=== PATIENT | female | born 1955 | race Caucasian/White ===

== ENCOUNTER 2016-08-30 11:26 | Day surgery (SDC) | payer MEDICARE ==
[~2016-08-30] VITALS: Ht 161.3 cm; Wt 66.0 kg
[~2016-08-30 11:26] MED LIST: ASCO500C6 PO; ASPI-973 PO; BETA15CR38 TP; CALC600T12 PO; CARI350T PO; CHLO500T24 PO; DIAZ10TA3 PO; GABA-502 PO; LEVO88TA4 PO; Lactated Ringer's 1,000 ML IV ONE; MULT-1018 PO; NIAC500T21 PO; PYR50 PO; TRAM50TA2 PO; VENL75TA3 PO; VITA200C61 PO; [UNRECOGNIZED DRUG - CODE] PO
[2016-08-30] MEDS ORDERED: Propofol 10,000 mCg/mL 20 mL Inj ONE (11:27)
[2016-08-30] MEDS ORDERED: Lidocaine PF 1% 30 mL Inj ONE (11:27)
[2016-08-30 12:19] VITALS: BP 134/97; PULSE 78; RESP 16; O2SAT 99
[2016-08-30] MEDS ORDERED: Atropine 0.4 mg/mL Inj IVPUSH PRN (13:10)
[2016-08-30] MEDS ORDERED: Ondansetron 2 mg/mL 2 mL Inj IVPUSH PRN (13:10)
[2016-08-30] MEDS ORDERED: Lactated Ringer's 1,000 ML IV SCH (13:10)
[2016-08-30] MEDS ORDERED: MetoCLOpramide 5 mg/mL 2 mL Inj IVPUSH PRN (13:10)
--- NOTE | 2016-08-30 13:10 | PCM.HPANE ---
Patient Data Date of Service: Aug 30, 2016 Surgeon Admitting Provider: Attending Provider:Rafat Bergeron MD Primary Care Physician:Tony Ndiaye MD Other Provider:Melanie Busch Anesthesia Reason for Visit Tubular Adenoma Of Colon Ht/WT & BMI Height (Feet): 5 Height (Inches): 3.5 Weight (Kilograms): 66 Body Mass Index 25.00 Allergies Coded Allergies: bupropion (Verified Allergy, Unknown, 08/30/16) Past Anesthesia History Anesthesia History: Denies:: Abnormal Airway, Anesthesia Reactions, Difficult Intubation, Fam Anesthesia Reaction, Fam Malignant Hypertherm, Malignant Hyperthermia Diabetes History Hx Diabetes?: No MRSA MRSA: No Medications Blood Thinner: Aspirin Last Dose Blood Thinner: Aug 20, 2016 Hypertension Medication: No Home Meds Incl Beta Ike: No Reported Medications Vitamin E (Dl,Tocopheryl Acet) (Vitamin E)200 Unit [id number] Unit PO DAILY 08/29/16 Ascorbic Acid (Vitamin C)500 Mg Capsule.er1,000 Mg PO DAILY 08/29/16 Pyridoxine (Vitamin B-6)50 Mg [id number] Mg PO DAILY 08/29/16 Venlafaxine 75 Mg Bbjxfo338 Mg PO BIDWM Ref 0 08/29/16 Tramadol 50 Mg Uuvfuu98 Mg PO BID PRN For Pain Ref 0 08/29/16 Niacinamide (Niacin)500 Mg Wocztk882 Mg PO DAILY 08/29/16 Carisoprodol (Soma)350 Mg [id number] Mg PO TID 08/29/16 Multivitamin (Multi Vitamin Daily)1 Each Tablet1 Each PO DAILY 30 Days Ref 0 08/29/16 Levothyroxine 88 Mcg Hwxcfo23 Mcg PO DAILY Ref 0 08/29/16 Gabapentin 300 Mg Xenwhkq491 Mg PO TID Ref 0 08/29/16 Estradiol/Norethindrone 0.5-0.1 mg 1 Each Tablet1 Tablet PO DAILY #1 PACK 08/29/16 Diazepam 10 Mg Hsqqvi68 Mg PO TID PRN For Anxiety Ref 0 08/29/16 Chlorzoxazone 500 Mg Kltnvv557 Mg PO BID 08/29/16 Calcium Carbonate (Calcium)600 Mg Tablet1,250 Mg PO DAILY 08/29/16 Betamethasone/Propylene Glyc (Betamethasone Dp Aug 0.05% Crm)15 Gm Cream..g.15 Gm TP BID 08/29/16 Aspirin 81 Mg Bfelqj77 Mg PO DAILY Ref 0 08/29/16 History History of ENT Problems?: No HEENT History: Denies:: Abnormal Airway Difficult Intubation Hx of Heart Problems?: No Cardiovascular History: Denies:: Pacemaker Hx of Respiratory Problem?: Yes Respiratory History: Positive for:: Pneumonia (21 years ago) Hx Neurologic Problems?: No Neurological History: Denies:: CVA Hx of GI Problems?: Yes Other GI Pertinent History: Hepatitis C Hx of Problems?: No HX of Peritoneal Dialysis: No Female Hx: Denies:: Currently Hx Musculoskeletal Problems?: Yes Musculoskeletal History: Positive for:: Fibromyalgia Hx of Psycho/Social Problems?: Yes Psycho Social History: Positive for:: Anxiety Hx Depression Hx Surgeries?: Yes (Left oophorectomy, left knee, oral surgery) Hx Any Other Health Problems?: Yes History Blood Transfusions: Denies:: Blood Transfuse Reaction Blood Transfusions Hx Diabetes: No Hx Alcohol Use: NoHx Substance Use: Yes Smoking Status: Current Every Day Smoker Stop/Bang Treated for Sleep Apnea?: No Do You Have a CPAP Machine?: No S-Snoring: Do You Snore Loudly: Yes T-Tired: feel tired, fatigued: No O-Obsered: Observed not breath: No P-Blood Pressure: treated: No B- Body Mass Index > 35 kg/m2: No A- Age over 50: Yes N- Neck Large Circumference: No G- Gender Male: No JORDAN Total Score: 2 JORDAN Risk Assessment: Low Risk, <3 Yes Risk Assessment Category Category 1A: Patient has history of documented sleep apnea, and HAS NOT received any narcotic, sedative or anesthesia administration during this stay. Category 1B: Patient has history of documented sleep apnea, and HAS received any narcotic , sedative or anesthesia administration during this stay Category 2: Patient has SUSPECTED Obstructive Sleep Apnea, and HAS received any narcotic , sedative or anesthesia administration during this stay. Category 3: Patient has SUSPECTED Obstructive Sleep Apnea and HAS NOT received narcotic, sedative or anesthesia administration during this stay. Category 4: Outpatient in Procedural Areas with known sleep apnea or who screen positive for High Risk via the STOP/BANG questionnaire. Exam Exam Vital Signs Vital Signs Date Time Temp Pulse Resp B/P Pulse Ox O2 Delivery O2 Flow Rate FiO2 08/30/16 12:19 78 16 134/97 99 Room Air General Appearance: Alert, Oriented X3, Cooperative HEENT/AIRWAY: MP 1, Neck Movement (Full), Mouth Opening (Wide) Lungs: Clear to Auscultation, Normal Air Movement Heart: Regular Rate/Rhythm, Normal S1, Normal S2 Plan Impression Patient chart reviewed, patient interviewed and anesthestic plan with risks, benefits, and alternatives discussed, and informed consent obtained. NPO Status: > 2 hours clears ASA Physical Status: ASA2 Mod Systemic Disease Anesthetic Plan: MAC Bene/Risks/Altern/Consents: Yes HP Complete Prior to Induction: Yes Cipriano Lindquist MD Aug 30, 2016 12:49
[2016-08-30 13:38] VITALS: BP 132/80; PULSE 76; RESP 16; O2SAT 96
--- NOTE | 2016-08-30 13:44 | PCM.ANEP1 ---
Post Anesthesia Phase 1 PACU Phase 1 Assessment Date of Service: Aug 30, 2016 Vital Signs Vital Signs Date Time Temp Pulse Resp B/P Pulse Ox O2 Delivery O2 Flow Rate FiO2 08/30/16 13:38 36.4 76 16 132/80 96 Room Air 08/30/16 12:19 78 16 134/97 99 Room Air Anesthetic Administered: MAC Level of Alertness: Awake, talking MARTINEZ's with Equal Strength: Yes Pain: No Nausea or Vomiting: No Lungs: Normal Air Movement Cipriano Lindquist MD Aug 30, 2016 13:44
[2016-08-30 13:48] VITALS: BP 139/83; PULSE 74; RESP 14; O2SAT 97
--- NOTE | 2016-08-30 13:50 | PCM.ANEP2 ---
Post Anesthesia Evaluation ASA/CMS Post Anesthesia Date of Service: Aug 30, 2016 VS in Patient's Normal Range?: Yes Resp Stable; Airway Patent?: Yes CV Function & Hydration Stable: Yes Mental Status Recovered?: Yes Pain control Satisfactory?: Yes N/V Control Satisfactory?: Yes Cipriano Lindquist MD Aug 30, 2016 13:50
[2016-08-30 13:58] VITALS: BP 144/91; PULSE 77; RESP 16; O2SAT 99
--- NOTE | 2016-08-30 14:41 | ENDO ---
[address] [address] ENDOSCOPY PROCEDURE PATIENT: LUIS FELIPE LEIVA : 1955 MR#: [id number] ADMIT: 08/30/2016 JOB ID: [id number] DATE: 08/30/2016 PROCEDURE: Colonoscopy with biopsy. PREOPERATIVE DIAGNOSIS(ES): History of tubular adenoma polyps. POSTOPERATIVE DIAGNOSIS(ES): 1. A 3 mm sigmoid polyp, removed by cold biopsy forceps. 2. There were two rectal polyps measuring 2 mm removed by cold biopsy forceps. ANESTHESIA: Monitored anesthesia care. COMPLICATIONS: None. BLOOD LOSS: Minimal. DESCRIPTION OF PROCEDURE: After risks and benefits were explained to the patient, informed consent was obtained. After anesthesia administered, colonoscope was then inserted from the rectum to the cecum. Mucosa carefully examined. Prep of the patient was excellent. After the procedure was done, the scope was withdrawn and the procedure terminated. FINDINGS: Upon inspection of the anus, no masses, hemorrhoids, ulcers, fissures were seen. Throughout the entire examination, there was a 3 mm sigmoid polyp and two polyps in the rectum measuring 2 mm. Each removed by cold biopsy forceps. Retroflexion was normal. IMPRESSION: Three polyps total, two in the rectum, one in the sigmoid measuring 3 mm in the sigmoid and 2 mm in the rectum removed by cold biopsy forceps. RECOMMENDATION: Await pathology results. If three or more tubular adenoma polyps, next colonoscopy in three years. If less than three tubular adenoma polyps, next colonoscopy in five years.
--- NOTE | 2016-09-02 14:30 | PATH ---
SURGICAL PATHOLOGY Attending Physician:Rafat Bergeron MD CASE STATUS: Signed Out PATIENT NAME: LUIS FELIPE LEIVA PID: [id number] : 1955 DATE COLLECTED:08/30/2016 20:36 SPECIMEN: 1: Rectum, Biopsy 2: Colon, Biopsy CLINICAL HISTORY: 1). RECTAL POLYP X2 2). SIGMOID COLON POLYP FINAL DIAGNOSIS: 1.RECTAL POLYPS: HYPERPLASTIC POLYPS, TWO. 2.SIGMOID COLON POLYP: HYPERPLASTIC POLYP. ICD10 CODE K62.1 K63.5 GROSS DESCRIPTION: The specimen is received in two formalin filled containers labeled with the patient's name. 1). The specimen is sublabeled "rectal polyp x2" and consists of 2 portions of tissue which aggregate to 0.2 x 0.2 x 0.2 CM. Specimen is entirely submitted in cassette 1A. 2). The specimen is sublabeled "sigmoid colon polyp" and consists of 3 portions of tissue which aggregate to 0.3 x 0.3 x 0.2 CM. The specimen is entirely submitted in cassette 2A. 08/30/2016 [facility] MICRO DESCRIPTION: See diagnosis. ICD-9 CODES: CPT CODES: 1: 37072 2: 67853 Electronically Signed Out Dolly Sandoval MD [facility] Pathology [facility], [place] [address] Technical component performed at [facility], [facility] [address], [address]
== END 2016-08-30 23:59 | disposition home or self-care (01) ==
LOC: END 11:26
PROVIDERS: ATTEND Internal Medicine Gastroenterology
DX: Z12.11 Encounter for screening for malignant neoplasm of colon (principal); K63.5 Polyp of colon; K62.1 Rectal polyp; F17.210 Nicotine dependence, cigarettes, uncomplicated; Z86.010 Personal history of colon polyps; Z79.82 Long term (current) use of aspirin; Z79.899 Other long term (current) drug therapy
CPT/HCPCS: 45380; J7120